=== PATIENT | female | born 1960 ===

== ENCOUNTER → 2018-06-19 | Outpatient (CLI) | payer OTHER ==
[2018-06-19] MEDS: ALBUTEROL SULFATE 2.5 MG/3 ML NEBU. NEB ONE (10:09)
== END | disposition home or self-care (01) ==
LOC: PF 09:41
PROVIDERS: ATTEND Internal Medicine Pulmonary Disease
DX: R06.02 Shortness of breath (principal)
CPT/HCPCS: 94060; 94640; J7613